=== PATIENT | male | born 2000 | race Caucasian/White ===

== ENCOUNTER 2023-04-07 07:41 | Day surgery (SDC) | payer OTHER, SELFPAY ==
--- NOTE | 2023-04-07 08:05 | FL_ITS ---
[address] [address] Patient Name: MARIBEL HOOKER MRN: [id number] date: 2000 Sex: M Assigned Patient Location: [facility] Current Patient Location: Accession/Order Number: [id number] Exam Date: 04/07/2023 08:15 Report Date: 04/07/2023 09:53 At the request of: DUNCAN SANCHEZ Procedure: FL guided needle placement EXAMINATION: FL shoulder inj RT, FL guided needle placement HISTORY: Right Shoulder Internal Derangement COMPARISON: No relevant comparison available. TECHNIQUE: An arthrogram was performed under fluoroscopic guidance using non-ionic contrast material in the usual sterile manner after obtaining informed consent. Standard level fluoroscopic mode of operation utilized. FINDINGS: JOINT: Right shoulder NEEDLE: 25 gauge, 3.5 spinal needle. MEDICATION: 2 mL buffered 1% lidocaine for subcutaneous anesthesia. Approximately 8 mL injected into joint space consisting of a mixture of 5 mL Omnipaque-300, 5 mL 1% lidocaine and 0.2 mL Dotarem. TECHNIQUE: Anterior approach under fluoroscopic guidance. CLINICAL: Decreased pain following the injection. COMPLICATIONS: None. OTHER: Negative. FL/FL guided needle placement IMPRESSION: 1. Technically successful arthrogram without complication. 2. Please see separate MRI arthrogram report. Electronically authenticated by: EDGAR DIANA Date: 04/07/2023 09:53
--- NOTE | 2023-04-07 08:05 | XR_ITS ---
The [address] [address] Patient Name: MARIBEL HOOKER MRN: [id number] date: 2000 Sex: M Assigned Patient Location: RAD Current Patient Location: RAD Accession/Order Number: [id number] Exam Date: 04/07/2023 08:10 Report Date: 04/07/2023 08:26 At the request of: DUNCAN SANCHEZ Procedure: XR foreign body eye EXAMINATION: XR foreign body eye HISTORY: Foreign Body Eye COMPARISON: No relevant comparison available. FINDINGS: ORBITS: Negative for a metallic foreign body. OTHER: Negative. XR/XR foreign body eye IMPRESSION: No radiopaque foreign body within the orbits. Electronically authenticated by: EDGAR DIANA Date: 04/07/2023 08:26
--- NOTE | 2023-04-07 08:05 | FL_ITS ---
[address] [address] Patient Name: MARIBEL HOOKER MRN: [id number] date: 2000 Sex: M Assigned Patient Location: [facility] Current Patient Location: Accession/Order Number: [id number] Exam Date: 04/07/2023 08:15 Report Date: 04/07/2023 09:53 At the request of: DUNCAN SANCHEZ Procedure: FL shoulder inj RT EXAMINATION: FL shoulder inj RT, FL guided needle placement HISTORY: Right Shoulder Internal Derangement COMPARISON: No relevant comparison available. TECHNIQUE: An arthrogram was performed under fluoroscopic guidance using non-ionic contrast material in the usual sterile manner after obtaining informed consent. Standard level fluoroscopic mode of operation utilized. FINDINGS: JOINT: Right shoulder NEEDLE: 25 gauge, 3.5 spinal needle. MEDICATION: 2 mL buffered 1% lidocaine for subcutaneous anesthesia. Approximately 8 mL injected into joint space consisting of a mixture of 5 mL Omnipaque-300, 5 mL 1% lidocaine and 0.2 mL Dotarem. TECHNIQUE: Anterior approach under fluoroscopic guidance. CLINICAL: Decreased pain following the injection. COMPLICATIONS: None. OTHER: Negative. FL/FL shoulder inj RT IMPRESSION: 1. Technically successful arthrogram without complication. 2. Please see separate MRI arthrogram report. Electronically authenticated by: EDGAR DIANA Date: 04/07/2023 09:53
--- NOTE | 2023-04-07 08:07 | MR_ITS ---
The [address] [address] Patient Name: MARIBEL HOOKER MRN: [id number] date: 2000 Sex: M Assigned Patient Location: [facility] Current Patient Location: [facility] Accession/Order Number: [id number] Exam Date: 04/07/2023 09:00 Report Date: 04/10/2023 07:47 At the request of: DUNCAN SANCHEZ Procedure: MR arthrogram shoulder EXAM: MR arthrogram shoulder HISTORY: Right Shoulder Internal Derangement chronic right shoulder pain, worsening after physical activity. COMPARISON: Right shoulder injection 04/07/2023. TECHNIQUE: MR arthrography of the right shoulder was performed following instillation of gadolinium into the glenohumeral joint under fluoroscopy. This included axial, coronal and sagittal T1 fat-sat, axial PD fat-sat, coronal PD fat-sat, coronal T1, coronal T2 fat-sat, and sagittal STIR imaging. FINDINGS: ACROMIOCLAVICULAR JOINT: No os acromiale is seen. No significant osteoarthritis of the acromioclavicular joint. There is a acromion noted. Minimal increased fluid is noted in the subacromial/subdeltoid bursa. ROTATOR CUFF TENDONS: Low to intermediate grade articular surface insertional tear of the anterior infraspinatus tendon fibers measuring 3 x 3 mm involving less than 50% of the tendon thickness. Adjacent low-grade tear of the distal infraspinatus tendon fibers measuring 8 x 10 mm, transverse by AP dimension. The supraspinatus and subscapularis tendons appear preserved. No rotator cuff muscle edema or atrophy is seen. BICEPS TENDON: The biceps tendon is intact and normally located. No biceps tenosynovitis is seen. LABRUM: No well-defined labral tear is identified. No paralabral cyst is seen. GLENOHUMERAL JOINT: No significant glenohumeral joint osteoarthritis is identified. No significant thickening of the inferior glenohumeral ligament is noted. BONES: The bone marrow signal intensity is age appropriate. No fracture is identified. OUTLET SPACES: No mass in the quadrilateral space or spinoglenoid notch. MR/MR arthrogram shoulder IMPRESSION: 1. Low to intermediate grade interstitial insertional tear of the anterior infraspinatus tendon fibers measuring 3 x 3 mm. Adjacent low-grade articular surface tear of the distal infraspinatus tendon fibers. No muscle atrophy. 2. No labral tear. 3. No significant osteoarthritis. No fracture. Electronically authenticated by: DUNCAN MIRAMONTES Date: 04/10/2023 07:47
[2023-04-07] MEDS: LIDOCAINE HCL 15 ML, SODIUM BICARBONATE 2 MEQ INJ (09:05)
--- NOTE | 2023-04-07 09:20 | PC.NURSE ---
04/03/23 instructed pt on procedure, date, time, and prep.
== END 2023-04-07 09:10 ==
PROVIDERS: Radiology Diagnostic Radiology; PCP Family Medicine; Visit Provider Personal Emergency Response Attendant
DX: M24.811 Other specific joint derangements of right shoulder, not elsewhere classified (principal); S46.811A Strain of other muscles, fascia and tendons at shoulder and upper arm level, right arm, initial encounter; X58.XXXA Exposure to other specified factors, initial encounter
CPT/HCPCS: 20610; 23350; 70030; 73222; 77002; A9575; Q9967